=== PATIENT | female | born 1985 | race Caucasian/White ===

== ENCOUNTER → 2020-12-28 | Outpatient (CLI) | payer OTHER ==
[2020-12-28 15:45] LABS: Basophils # (A) 0.06 X 10*3/uL (0.00-0.10); Basophils % (A) 0.9 %; Eosinophils # (A) 0.15 X 10*3/uL (0.04-0.35); Eosinophils % (A) 2.2 %; HCT 39.3 % (37.2-46.3); HGB 12.9 g/dL (12.0-15.0); Lymphocytes # (A) 2.34 X 10*3/uL (0.90-5.00); MCH 29.1 pg (27.0-32.0); MCHC 32.8 g/dL (32.0-37.0); MCV 88.7 fL (80.0-97.0); Mean Platelet Volume 9.5 fL (9.5-12.2); Neutrophils # (A) 3.72 X 10*3/uL (1.80-7.70); Neutrophils % (A) 55.8 %; Platelet Count 314 X 10*3/uL (140-440); RBC 4.43 X 10*6/uL (4.10-5.20); RDW 12.6 % (11.5-14.5); WBC 6.68 X 10*3/uL (4.50-10.00)
[2020-12-28 18:12] LABS: African American GFR (CKD) 135.1 (60.0-200.0); Albumin 4.6 g/dL (3.8-4.9); Albumin/Globulin Ratio 2.22 (1.60-3.17); Anion Gap 11.8 mmol/L (4.00-12.00); BUN/Creat Ratio 25.04 Ratio (12.00-20.00); Blood Urea Nitrogen 16.3 mg/dL (9.0-27.0); Calcium 9.2 mg/dL (8.7-10.3); Carbon Dioxide 21.9 mmol/L (21.6-31.8); Chol/HDL Ratio 2.44 Ratio; Globulin 2.1 g/dL (1.6-3.3); HDL Cholesterol 62.2 mg/dL (40.00-60.00); Non-African American GFR(CKD) 116.6 (60.0-200.0); Potassium 4.4 mmol/L (3.5-5.5); T4, Free (Free Thyroxine) 1.05 ng/dL (0.800-1.800); Total Bilirubin 0.2 mg/dL (0.30-1.20); Total Protein 6.7 g/dL (6.2-8.2); Triglycerides 47.6 mg/dL (0.00-149.00); VLDL Calculation 9.52 mg/dL (5.00-40.00)
== END | disposition home or self-care (01) ==
LOC: LABWHC1 09:39
PROVIDERS: ATTEND Family Medicine
DX: Z00.01 Encounter for general adult medical examination with abnormal findings (principal)
CPT/HCPCS: 36415; 80053; 80061; 83036; 84439; 84443; 85025

== ENCOUNTER → 2021-08-28 | Outpatient (CLI) | payer BC ==
--- NOTE | 2021-08-29 06:57 | MR ---
EXAMINATION TYPE: MR abdomen wo/w con DATE OF EXAM: 08/28/2021 COMPARISON: None HISTORY: Abdominal pain mostly RUQ. Gallbladder removed 07/2019. CONTRAST: Standard multiplanar, multisequence MRI departmental protocol images were obtained without contrast a nd with 6 mL intravenous Gadavist gadolinium contrast. Multiplanar multi echo imaging of the abdomen without and with IV contrast. Liver has normal focal defect. Spleen is intact. The stomach is intact. There is no evidence of a patricia creatic mass. The common bile duct is not dilated. Intrahepatic bile ducts are not dilated. Pancreati c duct not dilated. There is no ascites. No sign of pleural effusion. There is no sign of adrenal mass. Kidneys have normal size. No hydronephrosis. There is no evidence o f retroperitoneal adenopathy. The contrast images show no pathologic enhancement. There is normal enhancement of the portal venous system. No evidence of ascites. There is cholecystectomy. IMPRESSION: Negative MR scan of the abdomen. No dilated ducts. No discrete liver mass.
== END | disposition home or self-care (01) ==
LOC: RADMRIMAIN 17:28
PROVIDERS: ATTEND Family Medicine
DX: K85.90 Acute pancreatitis without necrosis or infection, unspecified (principal)
CPT/HCPCS: 74183; A9585

== ENCOUNTER → 2022-02-18 | Outpatient (CLI) | payer BC ==
[2022-02-18 10:27] LABS: Basophils # (A) 0.04 X 10*3/uL (0.00-0.10); Basophils % (A) 0.7 %; Eosinophils # (A) 0.06 X 10*3/uL (0.04-0.35); Eosinophils % (A) 1.1 %; HCT 38.3 % (37.2-46.3); HGB 12.8 g/dL (12.0-15.0); Immature Grans, Automated 0.2 %; Lymphocytes # (A) 1.85 X 10*3/uL (0.90-5.00); MCH 30.1 pg (27.0-32.0); MCHC 33.4 g/dL (32.0-37.0); MCV 90.1 fL (80.0-97.0); Mean Platelet Volume 10.3 fL (9.5-12.2); Monocytes # (A) 0.32 X 10*3/uL (0.20-1.00); Monocytes % (A) 5.7 %; NRBC Per 100 WBC 0 /100 WBCS (0.0-0.0); Neutrophils # (A) 3.33 X 10*3/uL (1.80-7.70); Neutrophils % (A) 59.3 %; Platelet Count 263 X 10*3/uL (140-440); RBC 4.25 X 10*6/uL (4.10-5.20); RDW 12.1 % (11.5-14.5); WBC 5.61 X 10*3/uL (4.50-10.00)
[2022-02-18 10:54] LABS: ALT 5 U/L (8-44); AST 13 U/L (13-35); Albumin 4.4 g/dL (3.8-4.9); Albumin/Globulin Ratio 2.04 (1.60-3.17); Alkaline Phosphatase 40 U/L (41-126); BUN/Creat Ratio 24.41 Ratio (12.00-20.00); Blood Urea Nitrogen 15.6 mg/dL (9.0-27.0); C Reactive Protein <0.30 mg/dL (0.00-0.80); Calcium 9.1 mg/dL (8.7-10.3); Carbon Dioxide 22.4 mmol/L (20.0-27.5); Chloride 103 mmol/L (96-109); Chol/HDL Ratio 2.68 Ratio; Ferritin 80.7 ng/mL (10.0-291.0); Globulin 2.2 g/dL (1.6-3.3); Glucose 87 mg/dL (70-110); Iron 184 ug/dL (50-170); LDL Cholesterol,Calculated 84.8 mg/dL (0.0-131.0); Non-African American GFR(CKD) 116.5 (60.0-200.0); Sodium 138 mmol/L (135-145); Total Iron Binding Capacity 311 ug/dL (228-460); Total Protein 6.5 g/dL (6.2-8.2); VLDL Calculation 13.66 mg/dL (5.00-40.00)
[2022-02-18 11:21] LABS: Rheumatoid Factor, Qnt <10 IU/mL (0-15)
[2022-02-18 11:49] LABS: Erythrocyte Sedimentation Rate 1 mm/Hr (0-20)
[2022-02-18 15:26] LABS: Anti-DNA, DS unit <1.0 IU/mL; Cyclic Citrull Pep IgG Unit 0.5 U/mL; Cyclic Citrullinated Pep IgG NEGATIVE (NEGATIVE); DNA Double-Stranded NEGATIVE (NEGATIVE)
== END | disposition home or self-care (01) ==
LOC: LABWHC1 07:04
PROVIDERS: ATTEND Family Medicine
DX: Z00.01 Encounter for general adult medical examination with abnormal findings (principal); D64.9 Anemia, unspecified; M79.641 Pain in right hand; M79.642 Pain in left hand
CPT/HCPCS: 36415; 80053; 80061; 82306; 82607; 82728; 83036; 83540; 83550; 84439; 84443; 85025; 85652; 86038; 86140; 86200; 86225; 86431

== ENCOUNTER → 2023-09-05 | Outpatient (CLI) | payer OTHER, BC ==
--- NOTE | 2023-09-09 14:03 | MR ---
EXAMINATION TYPE: MR wrist LT wo con DATE OF EXAM: 09/05/2023 COMPARISON: Radiograph 08/25/2023 HISTORY: 38-year-old female M65.842, other synovitis and tenosynovitis of the left hand. Left wrist p ain for 1.5 years due to lunging horse and hand pulling from wrist TECHNIQUE: Multiplanar, multisequence images of the left wrist were obtained without IV contrast. FINDINGS: There is inhomogeneous signal within the dorsal band of the scapholunate ligament but without any fra nk tear identified. Lunotriquetral ligament appears intact. The TFC appears intact though with a trace effusion in the distal radial ulnar joint. Normal caliber median nerve at the distal wrist crease with cross-sectional area of 9 sq mm. The radiocarpal and distal radial ulnar joint as well as the midcarpal compartment are intact. No acu te or healing fracture seen. Mild tenosynovial fluid along the second dorsal extensor tendon compartment. This is at the level of the crossing with the extensor pollicis longus. Otherwise, dorsal extensor and volar flexor tendons a ppear satisfactory. IMPRESSION: 1. Degenerative signal within the dorsal band of the TFC without discrete tear. 2. Mild tenosynovial fluid within the second dorsal extensor tendon compartment. As this is at the le zackary with the crossing of the extensor pollicis longus, correlate clinically to exclude the possibilit y of a distal intersection syndrome. 3. No acute or healing fracture other discrete abnormality seen.
== END | disposition home or self-care (01) ==
LOC: RADMRIMAIN 12:50
PROVIDERS: ATTEND Orthopaedic Surgery Hand Surgery
DX: M25.532 Pain in left wrist (principal); M65.842 Other synovitis and tenosynovitis, left hand

== ENCOUNTER → 2023-12-31 | Outpatient (CLI) | payer OTHER, BC ==
--- NOTE | 2023-12-31 08:01 | USB ---
Reason for Exam: Clinical finding. Patient History: Menarche at age 15. Patient has no children. Hormonal Contraceptives for 1 month starting at age 22. Maternal grandmother had breast cancer. Risk Values: Ya 5 year model risk: 0.4%. NCI Lifetime model risk: 11.3%. Technique: Method: Targeted. Prior Study Comparison: 09/21/2007 Bilateral Diagnostic Mammogram, [facility]. Findings: The upper section of the breast of the right breast, the lower section of the breast of the left breast, the axilla of both breasts and the retroareolar of the right breast were scanned. Ultrasound of the right breast demonstrates a retroareolar cyst measuring 7 x 4 mm. Evaluation of the left breast at the 6:00 position demonstrates an additional cyst measuring 4 x 4 by 5 mm 1 cm from the nipple. No solid masses are seen within either breast at the image sites. Correlate clinically. Overall Assessment: Benign, BI-RAD 2 Management: Screening Mammogram of both breasts at age 42. A clinical breast exam by your physician is recommended on an annual basis and results should be correlated with mammographic findings. This exam should not preclude additional follow-up of suspicious palpable abnormalities. Results were given to the patient verbally at the time of exam. [facility], , 12/31/2023 7:57 AM. Electronically signed and approved by: Sanchez Gutierres M.D. Radiologis
--- NOTE | 2023-12-31 08:01 | MM ---
Reason for Exam: Clinical finding. Last mammogram was performed 16 year(s) and 3 month(s) ago. Patient History: Menarche at age 15. Patient has no children. Hormonal Contraceptives for 1 month starting at age 22. Maternal grandmother had breast cancer. Last menstrual period: 12/26/2023 Risk Values: Ya 5 year model risk: 0.4%. NCI Lifetime model risk: 11.3%. Prior Study Comparison: 09/21/2007 Bilateral Diagnostic Mammogram, [facility]. 09/21/2007 Bilateral Diagnostic Ultrasound, [facility]. Tissue Density: The breasts are extremely dense, which lowers the sensitivity of mammography. Findings: Analyzed By CAD. No distinct mass or distortion at the site of clinical concern bilateral breasts. No suspicious microcalcifications. Overall Assessment: Incomplete: need additional imaging evaluation, BI-RAD 0 Management: Diagnostic Breast Ultrasound of both breasts. . Results were given to the patient verbally at the time of exam. Patient should continue monthly self-breast exams. A clinical breast exam by your physician is recommended on an annual basis. This exam should not preclude additional follow-up of suspicious palpable abnormalities. Note on Ya scores and lifetime risk: 1. A Ya score greater than 3% is considered moderate risk. If this is the case, consider specialist referral to assess eligibility for a risk reducing agent. 2. If overall lifetime risk for the development of breast cancer is 20% or higher, the patient may qualify for future screening with alternating mammogram and breast MRI. [facility], , 12/31/2023 7:58 AM. Electronically signed and approved by: Sanchez Gutierres M.D. Radiologis
== END | disposition home or self-care (01) ==
LOC: RADMAMWWP 07:00
PROVIDERS: ATTEND Family Medicine
DX: N63.10 Unspecified lump in the right breast, unspecified quadrant (principal); N63.20 Unspecified lump in the left breast, unspecified quadrant; N63.11 Unspecified lump in the right breast, upper outer quadrant; Z80.3 Family history of malignant neoplasm of breast
CPT/HCPCS: 77062; 77066